=== PATIENT | female | born 1950 | race Caucasian/White ===

== ENCOUNTER 2025-03-22 06:30 | Emergency (ER) | payer MEDICARE, OTHER ==
[~2025-03-22] VITALS: Ht 162.6 cm; Wt 59.7 kg
[~2025-03-22 06:30] MED LIST: ALBU8HFA INH; ALEN70TA60 PO; BUPR150T8 PO; CHLO25TA10 PO; FLUT1BLS25 PO; OMEP20CA16 PO; VERA240C2 PO
[2025-03-22 06:32] VITALS: TEMP 99.2
--- NOTE | 2025-03-22 06:37 | ELECTROCARDIOGRAPH REPORT ---
[facility] Test Date: 2025-03-22 Test Time: 06:34:39 Pat Name: LING CAMPBELL Department: EMERGENCY ROOM Room: Gender: F [employer] Operations [employer]: WOODY : 1950 Requested By: SHERIN EVANS Order Number: [id number] Reading MD: Measurements Intervals [place] Rate: 104 P: 83 CT: 143 QRS: 55 QRSD: 94 T: 48 QT: 367 QTc: 483 Interpretive Statements Sinus tachycardia Please click the below link to view image of tracing.
--- NOTE | 2025-03-22 07:19 | Physician Documentation ---
History of Present Illness ~ Chief Complaint: Chest Pain Stated Complaint: CHEST PAIN/SOB Time Seen by MD: 07:04 Primary Medical Doctor: sridevi Fernandez Mode of Arrival: POV HPI Patient with a hypertension and hyperlipidemia in with central chest pain that radiates into her mid back for the past couple of days. She has never had this before. She rates it 5/10. No shortness of breath, vomiting or diaphoresis. Quit smoking a couple of years ago but it only smoked for a year and prior to that had been smoke free for 20 years. She has the pain at rest. It is sharp. Medication Reconciliation Allergies: Uncoded Allergies: PAIN MEDS (Allergy, Unknown, SEVERE NAUSEA, 03/20/24) Scheduled Alendronate Sodium* (Fosamax*), 1 TAB PO Q7D, (Reported) Atorvastatin Calcium* (Lipitor*), 1 TAB PO DAILY, (Reported) Bupropion Hcl SR* (Wellbutrin SR*), 1 TAB PO DAILY, (Reported) Chlorthalidone (Chlorthalidone), 1 TAB PO DAILY, (Reported) Fluticasone/Vilanterol (Fluticasone-Vilanterol 200-25), 1 PUFFS PO DAILY, (Reported) Omeprazole (Omeprazole), 2 TAB PO DAILY, (Reported) Verapamil Hcl (Verapamil Er), 1 CAP PO DAILY, (Reported) Scheduled PRN albuterol inhaler (Pro-Air Inhaler), 2 PUFFS INH Q4HPRN PRN for wheezing, (Reported) Review of Systems All Other Systems at this time: Reviewed and Negative Physical Exam Vital Signs: Temperature: 99.2, Source: Temporal, Heart Rate: 93, Respiratory Rate: 16, BP: 132/80, Pulse Oximetry: 97, Weight: 59.700 Oxygen Flow Rate: 0 General Appearance: alert, WD/WN Neck: normal inspection, full range of motion Respiratory: lungs clear, normal breath sounds Chest: no accessory muscle use Cardiovascular: regular rate, rhythm, no edema, no murmur Gastrointestinal: normal palpation, non-tender Extremities: normal inspection Neurologic: oriented x4, memory intact Psychiatric: normal mood/affect Skin: normal color, warm/dry Progress Results/Orders Results/Orders Orders - SHERIN EVANS MD Chest,Single View (03/22/25 06:31) Monitor (03/22/25 06:31) Saline Lock (03/22/25 06:31) Oxygen (03/22/25 06:31) Nitroglycerin Sublingual Tab (Nitrostat (03/22/25 07:05) Potassium Cl 10meq Er Tablet (Klor-Con 1 (03/22/25 08:00) Completed Orders - SHERIN EVANS MD Chest,Single View (03/22/25 06:31) Cbc/Diff (03/22/25 06:31) BMP (03/22/25 06:31) PBNP (03/22/25 06:31) Electrocardiogram (03/22/25 06:31) Hs Troponin I W Calculations (03/22/25 06:31) Hs Troponin I W Calculations (03/22/25 08:31) Hs Troponin I W Calculations (03/22/25 09:31) Aspirin 81mg Chew Tablet (Aspirin 81mg C (03/22/25 07:05) MG (03/22/25 07:13) Medications Received in ER Medications (Trade) Dose Ordered Sig/Maurisio Route PRN Reason Start Time Stop Time Status Last Admin Dose Admin (aspirin 81MG chew tablet) 324 mg ONCE ONCE PO 03/22/25 07:05 03/22/25 07:07 DC 03/22/25 07:17 324 MG (Nitrostat SL tablet) 0.4 mg Q5MIN PRN SL chest pain 03/22/25 07:05 03/22/25 08:04 0.4 MG (Klor-Con 10mEq ER tablet) 40 meq ONCE PO 03/22/25 08:00 03/22/25 08:07 40 MEQ Vital Signs 03/22/25 03/22/25 03/22/25 03/22/25 06:32 06:51 07:02 08:08 Temp 99.2 Pulse 103 93 104 Resp 18 18 16 16 B/P (MAP) 148/64 132/80 (97) 153/79 (103) Pulse Ox 98 97 95 O2 Flow Rate 0 0 03/22/25 03/22/25 09:00 09:59 Pulse 86 87 Resp 16 18 B/P (MAP) 126/72 (90) 145/83 (103) Pulse Ox 96 97 O2 Flow Rate 0 0 Laboratory Tests Test 03/22/25 07:13 03/22/25 08:18 03/22/25 09:30 White Blood Count 13.3 H Red Blood Count 3.73 L Hemoglobin 12.8 Hematocrit 36.5 Mean Corpuscular Volume 97.9 Mean Corpuscular Hemoglobin 34.4 H Mean Corpuscular Hemoglobin Concent 35.1 Red Cell Distribution Width 13.2 Platelet Count 405 Mean Platelet Volume 7.4 Neutrophils (%) (Auto) 75.1 H Lymphocytes (%) (Auto) 10.2 L Monocytes (%) (Auto) 14.1 H Eosinophils (%) (Auto) 0.2 Basophils (%) (Auto) 0.4 Neutrophils # (Auto) 10.0 H Lymphocytes # (Auto) 1.4 Monocytes # (Auto) 1.9 H Eosinophils # (Auto) 0.0 Basophils # (Auto) 0.1 CBC Comment Sodium Level 129 L Potassium Level 2.7 *L Chloride Level 87 L Carbon Dioxide Level 31.3 Anion Gap 11 Blood Urea Nitrogen 5 L Creatinine 0.47 Estimated GFR/1.73 m2 > 90 BUN/Creatinine Ratio 10.6 Glucose Level 108 H Calcium Level 8.6 Magnesium Level 1.9 Troponin I High Sensitivity 7 7 5 Pro-B-Type Natriuretic Peptide 307 H Albumin 3.4 Chemistry Comments Troponin I High Sens Percent Delta 0 28 Troponin I Hi Sens Absolute Change 0 -2 Medical Decision Making Findings Patient in with chest pain over the last couple of days. Well-appearing with unremarkable exam. Troponin is negative x2. EKG unremarkable. Chest x-ray negative. She does have low potassium at 2.7 and this was replaced with 40 mEq. She states last month she had the same finding and was given potassium. She is to be on albuterol and was switched a couple of months ago to Breo. She also takes chlorthalidone. Patient is to follow up with her doctor in the next week for echocardiogram and recheck of potassium. Discussed that she will either need to go on potassium supplements or possibly change her medications. Discharging in good condition with family. Return here if new or worsening symptoms prior to follow up. Departure Disposition: HOME / SELF CARE / HOMELESS Impression: Primary Impression: Chest pain Qualified Codes: R07.9 - Chest pain, unspecified Additional Impression: Hypokalemia Condition: Stable Discharge Instructions: Hypokalemia, Nonspecific Chest Pain, Adult Additional Instructions: Follow up with your doctor in the next week. You need an echocardiogram which is also called an ultrasound of your heart in order to do further testing. You also need a recheck of your potassium. You are on 2 medications that can drop your potassium and this may be the problem. You may either need to go on potassium supplements or change one or both medications. Those medications are Breo and chlorthalidone. Return to the emergency room if new or worsening symptoms prior to follow up. Referrals: NO PRIMARY CARE PROVIDER (PCP) Signature Scribe Signature: No scribe used Attestation: No scribe used SHERIN EVANS MD Mar 22, 2025 07:19
[2025-03-22 07:25] LABS: MEAN PLATELET VOLUME 7.4 FL (7.4-10.4); RED CELL DISTRIBUTION WIDTH 13.2 % (11.5-14.5)
--- NOTE | 2025-03-22 07:30 | RADIOLOGY REPORT ---
CHEST RADIOGRAPH Indication: CP Technique: Single frontal view of the chest was obtained Comparison: None FINDINGS: Lines and Tubes: None Lungs: No focal consolidation. Pleura: No effusion. No pneumothorax. Cardiomediastinal contours: Unremarkable Bones: No acute osseous abnormality. IMPRESSION: No acute cardiopulmonary disease.
[2025-03-22 07:50] LABS: CREATININE 0.47 MG/DL (0.40-0.90); PRO BRAIN NATRIURETIC PEPTIDE 307 PG/ML (0-125); TOTAL CARBON DIOXIDE 31.3 MMOL/L (24-32); eCRCL 93 ML/MIN; eGFR > 90 ML/MIN
[2025-03-22] MEDS ORDERED: ATOR40TA PO (09:57)
[2025-03-22] MEDS ORDERED: OMEP-419 PO (09:57)
[2025-03-22 10:50] VITALS: BP 149/79; PULSE 91; RESP 16; O2SAT 96
== END 2025-03-22 10:53 | disposition home or self-care (01) ==
LOC: ER 06:31
DX: R07.89 Other chest pain (principal); E87.6 Hypokalemia; E78.5 Hyperlipidemia, unspecified; I10 Essential (primary) hypertension; R06.02 Shortness of breath; Z87.891 Personal history of nicotine dependence; Z88.8 Allergy status to other drugs, medicaments and biological substances
CPT/HCPCS: 36415; 71045; 80048; 83735; 83880; 84484; 85025; 93005; 99285